=== PATIENT | male | born 1950 | race Caucasian/White ===

== ENCOUNTER 2017-09-07 05:53 | Day surgery (SDC) | payer OTHER ==
[~2017-09-07] VITALS: Ht 182.9 cm; Wt 81.6 kg
--- NOTE | ~2017-09-07 | OP ---
PATIENT NAME: YAZ HYDE MEDICAL RECORD: [id number] :48 [facility] AD[facility] DATE: SURGEON: MELINA WALL MD DATE OF OPERATION: 09/07/2017 PREOPERATIVE DIAGNOSIS: Ulcerative lesion on the medial aspect of the left hand just medial to the 5th metacarpophalangeal joint. POSTOPERATIVE DIAGNOSIS: Ulcerative lesion on the medial aspect of the left hand just medial to the 5th metacarpophalangeal joint. Please see dimensions below. PROCEDURE: A wide excision of 1.5 cm ulcerated skin lesion on the medial aspect of the hand, just medial to the metacarpophalangeal joint. The dimensions of the excision, including margins, measured 7.2 x 2.5 cm. SURGEON: Melina Wall MD CHAR FILTER TANK TENDER: None. BLOOD LOSS: Minimal. ANESTHESIA: General. COMPLICATIONS: None. The risks, possible complications, and alternatives to procedure were discussed with the patient. He elects to proceed. OPERATIVE COURSE: The patient was conveyed to the operating room electively on 09/07/2017. General anesthesia was induced by anesthesia staff. The left hand was sterilely prepped and draped. I then measured the skin lesion. I jaclny out my proposed wide margin through the use of double curvilinear incisions. I then excised the lesion with surrounding skin. The dimensions of the excision are listed above. This was an axial type of a wide excision. The specimen was oriented with sutures and sent to the pathologist for frozen section examination. Frozen section examination revealed that the margins were negative and that this was a squamous cell carcinoma. Subcutaneous flaps were created sharply. At no time was there any apparent nervous, arterial, or tendinous injury. The closure consisted of multiple interrupted horizontal mattress 2-0 nylons and then Dermabond. The patient was then extubated and conveyed to post-anesthesia care unit where he was in stable condition. He will be dismissed back to the senior living with [place] for pain. I will see him at the senior living on rounds. TRANSINT:[id number] Voice Confirmation ID: [id number] DOCUMENT ID: [id number] OPERATIVE REPORT [id number] MARY ELLENYAZ MELINA WALL MD at 1158 CC: [id number] DICTATION DATE: 09/07/17 1349 VISUAL EFFECTS ARTIST: 09/07/17 1507 [facility] 09/07/17 [facility] [address] [place] [address]
[2017-09-07] MEDS ORDERED: LISINOPRIL5 MG PO (06:40)
[2017-09-07] MEDS ORDERED: HALDOL DECA100 MG/M1 IM (06:43)
[2017-09-07] MEDS ORDERED: QVAR8.7 G1 INH (06:45)
[2017-09-07] MEDS ORDERED: FLOMAX0.4 MG PO (06:53)
[2017-09-07] MEDS ORDERED: PROPRANOLOL HCL20 MG PO (06:54)
[2017-09-07 06:55] LABS: BASOPHILS 0.6 % (0-2); EOSINOPHILS 1.8 % (0-7); HEMATOCRIT 39.8 % (42.0-54.0); HEMOGLOBIN 13.6 g/dL (13.5-17.5); IMMATURE GRANULOCYTES 0.2 % (0-5); LYMPHOCYTES 36.3 % (15-50); MCH 30.6 pg (26.0-34.0); MCHC 34.2 g/dL (31.0-37.0); MCV 89.4 fL (80.0-100.0); MEAN PLATELET VOLUME 9.4 fL (7.4-10.4); NEUTROPHILS 50.1 % (40-80); PLATELET COUNT 147 10x3/uL (130-400); RBC 4.45 10x6/uL (4.20-6.10); RDW 12.9 % (11.5-14.5)
[2017-09-07 07:05] VITALS: BP 149/85; Ht 182.9 cm; Wt 81.6 kg
[2017-09-07 07:37] LABS: ALBUMIN 3.5 g/dL (3.4-5.0); ALKALINE PHOSPHATASE 344 U/L (46-116); ALT (SGPT) 18 U/L (10-68); BILIRUBIN - TOTAL 0.42 mg/dL (0.2-1.3); CALC OSMOLALITY 279 mosm/kg (275-300); CALCIUM 8.7 mg/dL (8.5-10.1); CARBON DIOXIDE 26.1 mmol/L (21.0-32.0); CHLORIDE - SERUM 104 mmol/L (98-107); CREATININE - SERUM 0.7 mg/dL (0.6-1.3); GLUCOSE 97 mg/dL (74-106); POTASSIUM - SERUM 3.9 mmol/L (3.5-5.1); PROTEIN - SERUM 7.2 g/dL (6.4-8.2); SODIUM 140 mmol/L (136-145); UREA NITROGEN 16 mg/dL (7-18); eGFR NON AFRICAN AMERICAN > 90 mL/min (90-120)
== END 2017-09-07 15:23 | disposition home or self-care (01) ==
LOC: D.OPS 05:53
PROVIDERS: Anesthesiology
DX: C44.629 Squamous cell carcinoma of skin of left upper limb, including shoulder (principal); L57.8 Other skin changes due to chronic exposure to nonionizing radiation; Z01.812 Encounter for preprocedural laboratory examination